=== PATIENT | male | born 2000 | race Caucasian/White ===

== ENCOUNTER 2021-12-03 22:20 | Emergency (ER) | payer OTHER, SELFPAY ==
--- NOTE | ~2021-12-03 | XR_ITS ---
EXAMINATION: XR ANKLE, LEFT CLINICAL INFORMATION: Fall COMPARISON: None TECHNIQUE: AP, lateral, and mortise views of the left ankle. FINDINGS: No acute fracture or location. Apparent narrowing of the medial clear space on the mortise view may be projectional, however ankle instability from ligamentous injury can also be considered. Mild soft tissue swelling lateral to the ankle. No significant ankle joint effusion. XR/XR ankle LT min 3V IMPRESSION: No acute fracture or dislocation. Soft tissue swelling anterior and lateral to the ankle. Query age-indeterminate ligamentous injury versus laxity as discussed
[2021-12-03 22:28] VITALS: BP 135/77; PULSE 101; RESP 16; TEMP 36.4; O2SAT 100; BMI 28.8
--- NOTE | 2021-12-03 23:05 | ED_ITS ---
HPI - Extremity Injury (Lower) General Chief Complaint: Extremity Injury, Lower Stated Complaint: L Ankle pain Time Seen by Provider: 12/03/21 22:34 Source: patient Mode of arrival: ambulatory Limitations: no limitations History of Present Illness HPI Narrative: Patient was playing basketball landed wrong and twisted his left ankle came here with swelling of lateral malleolus patient able to ambulate with pain no other injuries Related Data Previous Rx's Medication Instructions Recorded doxycycline hyclate 100 mg tablet 100 mg PO BID #20 tab 12/03/21 ibuprofen 600 mg tablet 600 mg PO Q6H PRN #20 tab 12/03/21 Allergies Allergy/AdvReac Type Severity Reaction Status Date / Time No Known Allergies Allergy Verified 12/03/21 22:34 Review of Systems Review of Systems: Yes all other systems are reviewed and are negative [facility] Social History Social History Advance Directives: No Physical Exam Vital Signs: Vital Signs: Last Vital Signs Temp 97.6 F 12/03/21 22:28 Pulse 101 H 12/03/21 22:28 Resp 16 12/03/21 22:28 BP 135/77 12/03/21 22:28 Pulse Ox 100 12/03/21 22:28 BMI result Body Mass Index 28.8 Skin: Other: Small folliculitis at anal verge no pus discharge nose surrounding erythema Extrem: Ankle/foot/toe images: 1. Soft tissue swelling good range of movement no deformity neurovascular intact Discharge Plan Discharge Clinical Impression: Ankle sprain and strain, Folliculitis Patient Disposition: Home, Self-Care Instructions: Ankle Sprain (ED), Folliculitis (ED) Additional Instructions: Use ankle air cast and crutches for ambulation and support Ibuprofen for pain Doxycycline for folliculitis Rest and ice to left ankle Prescriptions: New ibuprofen 600 mg tablet 600 mg PO Q6H PRN (Reason: pain) Qty: 20 0RF doxycycline hyclate 100 mg tablet 100 mg PO BID Qty: 20 0RF Stand Alone Forms: Work/School Release
[2021-12-04] MEDS: Ibuprofen 600 MG TABLET PO (00:40)
== END 2021-12-04 00:48 | disposition home or self-care (01) ==
PROVIDERS: Emergency Provider Internal Medicine
DX: S93.402A Sprain of unspecified ligament of left ankle, initial encounter (principal); S96.912A Strain of unspecified muscle and tendon at ankle and foot level, left foot, initial encounter; X50.1XXA Overexertion from prolonged static or awkward postures, initial encounter; L73.9 Follicular disorder, unspecified; Y93.67 Activity, basketball; Y92.310 Basketball court as the place of occurrence of the external cause; Y99.9 Unspecified external cause status
CPT/HCPCS: 73610; 99283